=== PATIENT | female | born 1965 | race Caucasian/White ===

== ENCOUNTER 2021-11-04 13:49 | Emergency (ER) | payer BC ==
[~2021-11-04 13:49] MED LIST: BENTYL 20MG TAB20 MG PO; ZOFRAN4 MG PO
== END 2021-11-04 16:00 | disposition home or self-care (01) ==
LOC: ER1 13:49
DX: S82.55XA Nondisplaced fracture of medial malleolus of left tibia, initial encounter for closed fracture (principal); S82.832A Other fracture of upper and lower end of left fibula, initial encounter for closed fracture; X58.XXXA Exposure to other specified factors, initial encounter
CPT/HCPCS: 73590; 73610; 99283

== ENCOUNTER → 2022-01-20 | Outpatient (CLI) | payer BC | LOC: KOH-I 11:46 | DX: R05.9 Cough, unspecified (principal) | CPT/HCPCS: 71046 ==